=== PATIENT | male | born 1950 | race Caucasian/White ===

== ENCOUNTER → 2017-09-18 | Outpatient (CLI) | payer MEDICARE, BC ==
[2016-06-12 18:31] VITALS: BP 141/83
[~2017-09-18] MED LIST: ONDA4TAB7 PO; RANI300T3 PO
--- NOTE | 2017-09-18 14:29 | RAD ---
CT UPPR EXTREMTY WO CONTRST LT Indication: LEFT SHOULDER PAIN TIMES 2 MONTHS, XRAYS POSITIVE FOR AC JOINT AND GELNOHUMERAL JOIUNT MARKED NARROWING. HX OF OSTEOARTHRITIS
NO PREVIOUS IMAGING DONE HERE.

Exposure: One or more of the following individualized dose reduction techniques were utilized for this examination: 1. Automated exposure control 2. Adjustment of the mA and/or kV according to patient size 3. Use of iterative reconstruction technique. Comparison: None are available. Contrast: None No bone destruction. No acute fracture. Primary osteoarthritis at the acromioclavicular joint with small undersurface osteophytes. Osteoarthritis of the glenohumeral joint, with severe narrowing at the joint posteroinferiorly. Subchondral cysts. Small marginal osteophytes. No dislocation. No calcified loose body. The soft tissues appear grossly unremarkable. Visualized left lung appears grossly clear IMPRESSION: 1. Primary osteoarthritis. 2. No acute findings. Electronically signed by: Lui Cortez MD (09/18/2017 2:26 PM) [facility]
== END | disposition home or self-care (01) ==
LOC: CT 08:37
PROVIDERS: ATTEND Family Medicine
DX: S43.492D Other sprain of left shoulder joint, subsequent encounter (principal); M19.012 Primary osteoarthritis, left shoulder; M25.712 Osteophyte, left shoulder; I11.9 Hypertensive heart disease without heart failure; E78.00 Pure hypercholesterolemia, unspecified; Z95.0 Presence of cardiac pacemaker; X58.XXXD Exposure to other specified factors, subsequent encounter
CPT/HCPCS: 73200